=== PATIENT | male | born 1975 | race Caucasian/White ===

== ENCOUNTER 2020-11-15 20:18 | Emergency (ER) | payer OTHER, MEDICAID ==
[~2020-11-15] VITALS: Ht 180.3 cm; Wt 81.6 kg
[2020-11-15 20:24] VITALS: BP_SYST 138
--- NOTE | 2020-11-15 20:24 | NUR ---
Patient to ER bed 5 to gown for evaluation. Side rails up.
--- NOTE | 2020-11-15 20:25 | NUR ---
Pt came into ER with laceration to left index and left ring finger. Pt reports he was trimming hedges and cut himself. Pt reports no loss of sensation and pain 01/27.
--- NOTE | 2020-11-15 20:31 | NUR ---
Tech at bedside irrigating laceration with sterile irrigating solution.
--- NOTE | 2020-11-15 20:59 | NUR ---
ER at bedside examining patient.
[2020-11-15] MEDS ORDERED: HYDROcodone/ACETAMIN 7.5-325 MG TAB PO ONE (21:15)
[2020-11-15] MEDS ORDERED: LIDOCAINE 2%, 20 ML MDV IM ONE (21:15)
--- NOTE | 2020-11-15 21:50 | NUR ---
Dr. Covarrubias at bedside. Administered lidocaine. Waiting for medication to take effect before suturing.
--- NOTE | 2020-11-15 22:10 | NUR ---
DR. THURMAN AT BEDSIDE TO SUTURE LACERATIONS.
[2020-11-15] MEDS ORDERED: BACITRACIN 1 GM OINT TP ONE ×2 (22:30→22:33)
--- NOTE | 2020-11-15 22:32 | NUR ---
Patient has 2 approxiamtley 2cm lacerations to left index and ring fingers. Dr. Covarrubias applied sutures using sterile technique. Edges well approximated. Site cleansed with betadine. Dressing of sterile gauze and rolled gauze applied to site. No bleeding noted. Pt tolerated well.
[2020-11-15 22:53] VITALS: BP_SYST 138
--- NOTE | 2020-11-15 22:54 | NUR ---
Patient given written and verbal discharge instructions and verbalizes understanding. ER MD discussed with patient the results and treatment provided. Patient in stable condition. ID arm band removed. Rx of Tramadol given. Patient educated on pain management and to follow up with PMD. Pain Scale 0/10. Opportunity for questions provided and answered. Medication side effect fact sheet provided.
== END 2020-11-15 22:53 | disposition home or self-care (01) ==
LOC: SED 20:18
DX: S61.211A Laceration without foreign body of left index finger without damage to nail, initial encounter (principal); S61.205A Unspecified open wound of left ring finger without damage to nail, initial encounter; W45.8XXA Other foreign body or object entering through skin, initial encounter; Y93.89 Activity, other specified; Y92.89 Other specified places as the place of occurrence of the external cause; Y99.8 Other external cause status
CPT/HCPCS: 12001; 99283; J2001

== ENCOUNTER 2020-11-27 19:47 | Emergency (ER) | payer MEDICAID, OTHER ==
[~2020-11-27] VITALS: Ht 182.9 cm; Wt 81.6 kg
[2020-11-27 20:04] VITALS: BP_SYST 133
--- NOTE | 2020-11-27 20:04 | NUR ---
Patient to ER bed 5 to gown for evaluation. Side rails up.
--- NOTE | 2020-11-27 20:06 | NUR ---
Pt came into ER for suture removal. Pt resting in [facility] no distress noted.
--- NOTE | 2020-11-27 20:45 | NUR ---
RHONDA Ferro at bedside examining patient.
--- NOTE | 2020-11-27 20:45 | NUR ---
Dr. Fernandes at bedside removing sutures. Pt tolerating well.
--- NOTE | 2020-11-27 21:14 | NUR ---
Patient given written and verbal discharge instructions and verbalizes understanding. ER MD discussed with patient the results and treatment provided. Patient in stable condition. ID arm band removed. Patient educated on pain management and to follow up with PMD. Pain Scale 0/10. Opportunity for questions provided and answered. Medication side effect fact sheet provided.
[2020-11-27 21:15] VITALS: BP_SYST 133
== END 2020-11-27 21:14 | disposition home or self-care (01) ==
LOC: SED 19:47
DX: S61.211D Laceration without foreign body of left index finger without damage to nail, subsequent encounter (principal); S61.205D Unspecified open wound of left ring finger without damage to nail, subsequent encounter; Z48.02 Encounter for removal of sutures; W45.8XXD Other foreign body or object entering through skin, subsequent encounter
CPT/HCPCS: 99281